=== PATIENT | female | born 1985 | race Caucasian/White ===

== ENCOUNTER 2021-10-07 18:47 | Emergency (ER) | payer OTHER | END 2021-10-07 19:58 | disposition home or self-care (01) | LOC: ER1 18:47 | DX: S60.222A Contusion of left hand, initial encounter (principal); V49.40XA Driver injured in collision with unspecified motor vehicles in traffic accident, initial encounter; Y92.410 Unspecified street and highway as the place of occurrence of the external cause | CPT/HCPCS: 29125; 73090; 73100; 73130; 99283 ==

== ENCOUNTER 2022-06-04 08:41 | Emergency (ER) | payer OTHER ==
[2022-06-04 09:32] LABS: HEMOGLOBIN 15.2 gm/dl (12.3-15.3); RED BLOOD COUNT 4.94 M/UL (4.00-5.10); WHITE BLOOD COUNT 9.7 K/UL (4.5-11.0)
[2022-06-04 09:52] LABS: BUN/CREATININE RATIO 12 (0-10)
[2022-06-04] MEDS ORDERED: TORADOL 10 MG T10 MG PO (13:00)
[2022-06-04] MEDS ORDERED: ZOFRAN 4 MG TAB4 MG PO (13:00)
== END 2022-06-04 13:18 | disposition home or self-care (01) ==
LOC: ER1 08:41
PROVIDERS: Emergency Medicine
DX: N13.2 Hydronephrosis with renal and ureteral calculous obstruction (principal); F17.200 Nicotine dependence, unspecified, uncomplicated
CPT/HCPCS: 80053; 81001; 83690; 84703; 85025; 96374; 96375; 99284; J1885; J2270; J2405; Q9967